=== PATIENT | male | born 1945 | race Caucasian/White ===

== ENCOUNTER → 2017-10-23 | Outpatient (CLI) | payer OTHER ==
[~2017-10-23] MED LIST: ALTACE2.5 MG PO; ASPIR 8181 M1 PO; ATORVASTATIN CA40 MG PO; CARVEDILOL12.5 MG PO; CLOPIDOGREL75 MG PO; FISH OIL 1,001000 M2 PO; FLUOXETINE HCL20 M1 PO; GLUCOSAMINE1000 MG PO; GLUCOTROL5 MG PO; JANUVIA100 MG PO; MELOXICAM15 MG PO; MULTI VITAMIN1 EACH PO; TRAZODONE 150150 M1 PO; ZETIA10 MG PO
== END ==
LOC: RAD 10:29
DX: C90.00 Multiple myeloma not having achieved remission (principal); M47.896 Other spondylosis, lumbar region; M47.892 Other spondylosis, cervical region

== ENCOUNTER 2021-02-18 14:20 | Inpatient (IN) | payer OTHER ==
[2021-02-18] VITALS (15 sets, daily range): BP systolic 89–131; BP diastolic 37–77
[~2021-02-18] VITALS: Ht 175.3 cm; Wt 65.8 kg
--- NOTE | ~2021-02-18 | EMS ---
[address] [address] EMS Patient Care Report Name: KIANA COOPER Room #: PRE MSydnee#: [id number] Admission: Attend Phys: Discharge: Date of : 45 Report #: [id number] THIS REPORT FOR: //name// Report Transmitted: 02/18/2021 14:28 EMS Care Summary [facility] MED-ACT Incident [id number] @ 02/18/2021 13:43 Incident Location [address] [place] [address] Patient KIANA COOPER Male, 75 Years 1945 Patient Address [address] [place] [address] Patient History Cardiac Arrythmia,Cardiac Arrest,Tracheostomy,Chronic Respiratory Failure,Respiratory Failure, Patient Allergies Iodine, Patient Medications Seroquel, Carvedilol, Oxycodone, Novolog, Bisacodyl, Metformin, Loratadine, Polyethlene Glycol, Trazodone, Ropinirole, Apixaban, Spironolactone, Aspirin, Amiodarone, Ativan, Prevacid, Chief Complaint Ventricular Tachycardia Disposition Transported No Lights/[place] Dispatch Reason Sick Person Transported To [address] [address] EMS Patient Care Report Name: KIANA COOPER Room #: PRE Antonietta#: [id number] Admission: Attend Phys: Discharge: Date of : 45 Report #: [id number] Narrative On arrival to the scene, the patient is found lying in his long-term care facility bed with fire responders, facility staff, and his family at his side. He is alert to verbal, oriented at his baseline according to his , tracks responders appropriately, and does not appear to be in acute distress. [facility] responders give this software test specialist a history of the present illness and interventions performed up to this point. At approximately 0530 this morning, the patient went into ventricular tachycardia with a pulse and has not gone into cardiac arrest today. He was recently admitted to [facility] from [facility] where he suffered two separate cardiac arrest events, a tracheostomy was placed, and other interventions were performed. He has a PICC in his right upper arm as well as a PIV in his right forearm that were not placed by EMS. Hanging on an IV pump is Cardizem at 15mL/hr that was titrated up from 5mL/hr, an emptied bag of Zosyn, and a 150mg bag of Amiodarone that is empty. Facility staff also reports giving the patient 0.5mg of Ativan PO at 1250. He has sustained the vtach since 0530 this morning with no alteration in rate or rhythm. The RN on scene reports thinking she saw atrial fibrillation with RVR. However, this software test specialist does not visualize an irregular rhythm on the monitor at this time. He has not become hypotensive at all since the arrhythmia began. He is placed on the defibrillation pads and moved to the stretcher via a draw-sheet assist where he is restrained according to local protocol. In the ambulance, the patient is placed on NiBP, SpO2, cardiac monitoring, defibrillation pads, and 12-lead ECG monitoring for continuous monitoring during transport. He appears to rest comfortably on the stretcher. The only medical complaint he has is a headache that he states has been persistent for the last 5 days. It is a generalized headache that is dull. He denies photophobia and phonophobia at this time. He denies chest pain, shortness of breath, and other symptoms associated with cardiac arrhythmias. During transport, the patient remains in a wide-complex tachycardia with no alteration to the rate. It remains at 149bpm with no supraventricular ectopy. His 12-lead ECG continues to show ventricular tachycardia. Report is attempted to be called to [facility] who advises this software test specialist that they have "no open beds, all hallway beds are full, and have no cardiac monitoring capabilities." Due to the patient's initially wanting the patient to be transported to [facility], this software test specialist diverts [facility] to [facility] and attempts to call the patient's . Biocom report is given to the receiving facility with no questions or further orders received. On arrival to the receiving facility, the patient's condition is unchanged. He remains alert to verbal stimuli and has no medical complaints aside from the headache he originally complained of. He remains in ventricular tachycardia with a pulse and does not complain of cardiac related symptoms. He is transported by EMS to ER 6 where he is moved to the stretcher via a draw-sheet assist. Report is given to the RN at MD at bedside who verbalize no comments or concerns regarding prehospital care. All questions are answered prior to leaving the receiving facility. [facility] [address] [place] [address] EMS Patient Care Report Name: KIANA COOPER Room #: PRE M.R.#: [id number] Admission: Attend Phys: Discharge: Date of : 45 Report #: [id number] Initial Vitals @14:08SpO2: 96,AR Suspected: false @14:15BP: 88/57,SpO2: 94, @14:00P: 149, @14:05P: 149,SpO2: 95,AR Suspected: false @14:07BP: 94/52,SpO2: 94, @14:11P: 149,BP: 101/57,SpO2: 95, @14:17P: 150,BP: 86/42,Pain: 2/10,GCS: 14,AR Suspected: false @13:59P: 149,R: 16,BP: 97/62,Pain: 2/10,GCS: 14,Temp: 99.1F,SpO2: 97,Revised Trauma: 12,AR Suspected: false Assessments @13:54MENTAL:Person Oriented,Time Oriented,Place Oriented,Event Oriented,SKIN:HEENT:Head/Face: No Abnormalities,Neck/Airway: No Abnormalities,LUNG SOUNDS:General: No Abnormalities,ABDOMEN:General: No Abnormalities,PELVIS//GI:No Abnormalities,EXTREMITIES:Capillary Refill: Left Upper: < 2 Sec,Left Arm: No Abnormalities,Right Arm: No Abnormalities,Left Leg: No Abnormalities,Right Leg: No Abnormalities,PULSE:Radial: 2+ Normal,NEURO:No Abnormalities, Impression Cardiac arrhythmia/dysrhythmia Procedures @14:14Surgical Mask on PatientResponse: Unchanged@13:52ALS AssessmentResponse: UnchangedSucceeded@PTANormal Saline (.9% NaCl) cc () Site: Antecubital-RightResponse: Unchanged@PTANormal Saline (.9% NaCl) cc () Site: Antecubital-RightResponse: Unchanged@14:0812-Lead ECGResponse: UnchangedSucceeded@14:0512-Lead ECGResponse: UnchangedSucceeded@PTAAmiodarone - 150 Milligrams (mg) - Intravenous (IV)Response: Improved Timeline DRAFTER DIRECTIONAL SURVEY,Normal Saline (.9% NaCl) cc Site: Antecubital-Right,Response: Unchanged DRAFTER DIRECTIONAL SURVEY,Normal Saline (.9% NaCl) cc Site: Antecubital-Right,Response: Unchanged DRAFTER DIRECTIONAL SURVEY,Amiodarone - 150 Milligrams (mg) - Intravenous (IV),Response: Improved 13:41,Call Received 13:41,Psap Call 13:43,Dispatched 13:43,En Route 13:48,On Scene 13:51,At Patient 13:52,ALS Assessment,Response: UnchangedSucceeded, 13:59,BP: 97/62 M,PULSE: 149,RR: 16 R,SPO2: 97 Ox,ETCO2: ,BG: ,PAIN: 2,GCS: 14, 14:00,BP: / M,PULSE: 149,RR: R,SPO2: Ox,ETCO2: ,BG: ,PAIN: ,GCS: , 14:04,Depart Scene 14:05,12-Lead ECG,Response: UnchangedSucceeded, [facility] [address] [place] [address] EMS Patient Care Report Name: KIANA COOPER Room #: [facility] M.R.#: [id number] Admission: Attend Phys: Discharge: Date of : 45 Report #: [id number] 14:05,BP: / M,PULSE: 149,RR: R,SPO2: 95 Ox,ETCO2: ,BG: ,PAIN: ,GCS: , 14:07,BP: 94/52 M,PULSE: ,RR: R,SPO2: 94 Ox,ETCO2: ,BG: ,PAIN: ,GCS: , 14:08,12-Lead ECG,Response: UnchangedSucceeded, 14:08,BP: / M,PULSE: ,RR: R,SPO2: 96 Ox,ETCO2: ,BG: ,PAIN: ,GCS: , 14:11,BP: 101/57 M,PULSE: 149,RR: R,SPO2: 95 Ox,ETCO2: ,BG: ,PAIN: ,GCS: , 14:14,Surgical Mask on Patient,Response: Unchanged 14:15,BP: 88/57 M,PULSE: ,RR: R,SPO2: 94 Ox,ETCO2: ,BG: ,PAIN: ,GCS: , 14:15,At Destination 14:17,BP: 86/42 M,PULSE: 150,RR: R,SPO2: Ox,ETCO2: ,BG: ,PAIN: 2,GCS: 14, 14:54,Call Closed Disclaimer v1.1 Copyright 2020 [employer] This EMS Care Summary contains data elements from the applicable legal record (which may be displayed differently). It is designed to provide pertinent information for the following purposes: continuity of care, clinical quality, and state data reporting. The complete legal record is available to ED staff and administrators of the receiving hospital in ES's Patient Tracker. All data is provided "as is."
[2021-02-18 14:44] LABS: BE(vivo) -2.2 mmol/L (-2 to +3); HCO3 20.2 mmol/L (22.0-26.0); PCO2 26.9 mmHg (35.0-45.0); pH 7.494 (7.360-7.450); sO2 93.6 % (92.0-98.0)
--- NOTE | 2021-02-18 15:03 | NUR ---
PAGED FOR PHARMACY TO SEND AMIODARONE STAT.
[2021-02-18 15:17] LABS: ABSOLUTE NEUTROPHILS 10.1 thou/uL (1.4-8.2); BASOPHILS 0.4 % (0.0-2.0); EOSINOPHILS 0.2 % (0.0-3.0); HEMOGLOBIN 8.7 gm/dL (14.0-18.0); LYMPHOCYTES 7.3 % (24.0-44.0); MCH 29.2 pg (26.0-34.0); MCHC 32.4 g/dL (28.0-37.0); MCV 90.4 fL (80.0-100.0); MONOCYTES 6.4 % (1.0-8.0); PLATELET COUNT 296 thou/uL (150-400); POLYS 85.7 % (36.0-66.0); RBC 2.99 mil/uL (4.50-6.00); RDW 15.3 % (10.5-14.5); WBC 11.8 thou/uL (4.0-11.0)
[2021-02-18 15:19] LABS: ANION GAP 8 mmol/L (7-16); BUN 20 mg/dL (7-18); CALCIUM 8.2 mg/dL (8.5-10.1); CHLORIDE 96 mmol/L (98-107); CO2 23 mmol/L (21-32); CREATININE 1.3 mg/dL (0.7-1.3); GLUCOSE 283 mg/dL (74-106); POTASSIUM 5.1 mmol/L (3.5-5.1); SODIUM 127 mmol/L (136-145)
[2021-02-18 15:41] LABS: ALBUMIN 2.1 g/dL (3.4-5.0); DIRECT BILIRUBIN 0.2 mg/dL (<0.1-0.2); MAGNESIUM 1.9 mg/dL (1.8-2.4); PHOSPHORUS 3.1 mg/dL (2.6-4.7); SGOT 162 U/L (15-37); SGPT 240 U/L (16-63); TOTAL BILIRUBIN 0.5 mg/dL (0.2-1.0); TOTAL PROTEIN 5.1 g/dL (6.4-8.2); TROPONIN-I <0.06 ng/mL (<0.06)
[2021-02-18 15:43] LABS: DIGOXIN 2.9 ng/mL (0.9-2.0)
--- NOTE | 2021-02-18 18:37 | NUR ---
CALLED [facility] AND REQUESTED CURRENT MEDICATION LIST TO BE FAXED, [facility] PHONE NUMBER [phone], SPOKE TO RADHA KANG.
[2021-02-18] MEDS ORDERED: ELIQUIS5 MG PO (18:54)
[2021-02-18] MEDS ORDERED: AMIODARONE HCL400 MG PER TUBE (18:54)
[2021-02-18] MEDS ORDERED: CARVEDILOL3.125 MG PER TUBE (18:55)
[2021-02-18] MEDS ORDERED: ELIQUIS5 MG PER TUBE (18:56)
[2021-02-18] MEDS ORDERED: ADULT ASPIRIN R81 MG PER TUBE (18:57)
[2021-02-18] MEDS ORDERED: NOVOLOG100 UNIT/M SUBQ (19:03)
[2021-02-18] MEDS ORDERED: LANSOPRAZOLE30 MG PER TUBE (19:05)
[2021-02-18] MEDS ORDERED: CLARITIN10 M3 PER TUBE (19:25)
[2021-02-18] MEDS ORDERED: METFORMIN HCL500 M3 PER TUBE (19:26)
[2021-02-18] MEDS ORDERED: MIRALAX17 GM PER TUBE (19:27)
[2021-02-18] MEDS ORDERED: REQUIP 1 MG TABL1 M1 PER TUBE ×2 (19:28→19:30)
[2021-02-18] MEDS ORDERED: SPIRONOLACTONE25 MG PER TUBE ×2 (19:31→19:39)
[2021-02-18] MEDS ORDERED: SPIRONOLACTONE25 M1 PER TUBE (19:32)
[2021-02-18] MEDS ORDERED: TRAZODONE HCL50 MG PER TUBE (19:40)
[2021-02-19] VITALS (32 sets, daily range): BP systolic 71–154; BP diastolic 34–106
--- NOTE | 2021-02-19 01:19 | NUR ---
02/18/212029: Pt admitted to ICU from ED in V-tach, rate 153-160. and son at bedside. Pt confused but oriented to person and somewhat to situation. 02/18/212099: Dr. Deutsch called. Pt and family have decided that they want to do cardioversion. Dr. Deutsch on his way in to talk with family. 02/18/212129: Dr. Deutsch here, discussed treatment options at length with pt and family
--- NOTE | 2021-02-19 01:51 | NUR ---
[employer] senior environmental technician here at midnight to reset AICD threshhold to [address] Deutsch. Pt has been in and out of V-Tach/V-fib since 0100 and received at least 9 shocks within a 45 minute period. Pt given morphine for discomfort of repeated shocks. Keeping O2 at 12 L high flow to insure adequate oxygenation during V-tach/V-fib. Pt awake and confused post shocks.
--- NOTE | 2021-02-19 02:58 | NUR ---
Pt continues to receive frequent shocks for V-tach/V-fib. Pt expressess feelings of impending and wanted to talk with his son, Sridhar. Sridhar called at [phone]. Phone taken in to pt so pt and son could talk together. Pt also given Morphine for generalized pain. Skin cool and clammy; attempted to sponge off pt but he requested nurse to stop. SBP remains >110, O2 sat 100%, monitor v-paced, sinus carol with 1st AVB and BBB, rates have been as low as 37 but usually 45-50.
--- NOTE | 2021-02-19 06:11 | NUR ---
Pt continues to have frequent runs of V-tach with rates 150-220. After AICD shocks pt drops back to sinus rhythm/sinus carol with rates 38-62, 1st degree AVB, BBB, v-paced beats and PVCs. Pt given morphine as ordered for generalized pain from frequent shocks. After some shocks pt appears to have seizure like activity, tonic convulsion with eyes rolling upward and altered breathing pattern. In between runs of VT/VF pt has been trying to sleep, remains confused but arouses easily to verbal stimuli. SBP has remained >100, MAP >60, O2 sat 100% on 12 L HFC. Pt has remained NPO since admission.
--- NOTE | 2021-02-19 09:25 | NUR ---
0700-ASSUMMED CARE OF PT.PT SLEEPING,WILL DO ASSESSMENT WHEN PT AWAKE.--VW 0750-[facility] CALLED W BED AVAILABLE.--VW 0805-REPORT GIVEN TO [facility] RN.--VW 0815-EMS CALLED FOR EMERGENT TRANSPORT.--VW 0825-CALLED [facility], ROOM #.--VW 0840-EKG DONE.--VW 0855-TO [facility], ROOM H 638. PT WENT FULLY MONITORED W ACLS CREW.TRACH REMAINED CAPPED.GLASSES W PT,NO OTHER BELONGINGS. COPIED CHART & TRANSPORT PAPERS GIVEN TO CREW.--VW
--- NOTE | 2021-02-19 12:28 | EKG ---
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 : 1945 Requested By: John Singh Order Number: [id number] MD: Melvin Deutsch Measurements Intervals [place] Rate: 149 P: 0 CA: 122 QRS: 121 QRSD: 224 T: -74 QT: 380 QTc: 599 Interpretive Statements Ventricular tachycardia Compared to ECG 12/29/2003 11:28:52 Sinus rhythm no longer present Electronically Signed On 02-19-2021 12:28:34 CDT by Melvin Deutsch [email or web address] <ELECTRONICALLY SIGNED> By: Melvin Deutsch MD, [facility] 02/19/21 1228 21 21 Melvin Deutsch MD, [facility] /EPI
--- NOTE | 2021-02-20 10:40 | CATHLAB ---
[facility] [address] [place] [address] INVASIVE PROCEDURE REPORT Name: KIANA COOPER Room #: 251-P [facility] IN M.R.#: [id number] Admission: 02/18/21 Attend Phys: Arik Lozano MD Discharge: 02/19/21 Date of : 45 Report #: [id number] THIS REPORT FOR: cc: Mono Peter MD, Alberto MD Lundgren,Melvin Hernandez MD [facility] ~ DOC #: [id number] Melvin Deutsch MD [facility] PROCEDURE: Cardioversion. INDICATIONS: Sustained VT. DESCRIPTION OF PROCEDURE: The potential benefits and risks were discussed with the patient and his family. Timeout was performed. A full written and informed consent was obtained. The patient was sedated with Versed and fentanyl. 50 biphasic synchronous joules were applied to the chest with conversion of VT to sinus bradycardia. He tolerated the procedure well. Plans are underway to reprogram his Medtronic ICD detection and treatment algorithm. Melvin Deutsch MD [facility] CHL/RISA/TAJ <ELECTRONICALLY SIGNED> By: Melvin Deutsch MD, [facility] 02/20/21 1040 0823 1452 Melvin Deutsch MD, FACC /nt
--- NOTE | 2021-02-20 11:00 | HC ---
[facility] [place] [address] CONSULTATION Name: KIANA COOPER Room #: 251-[facility] IN M.R.#: [id number] Admission: 02/18/21 Attend Phys: Arik Lozano MD Discharge: 02/19/21 Date of : 45 Report #: [id number] THIS REPORT FOR: cc: Mono Peter MD, Alberto MD Lundgren,Melvin Hernandez MD [facility] ~ DOC #: [id number] Melvin Deutsch MD [facility] DATE OF SERVICE: 02/18/2021 REASON FOR CONSULTATION: Wide complex tachycardia. HISTORY OF PRESENT ILLNESS: The patient is a 75-year-old gentleman with a complicated history including remote myocardial infarction, treated with thrombolytic therapy in 1991. This is followed by another heart attack in 1996, at which time he underwent 5-vessel bypass surgery by Dr. Erwin at [facility]. Two years ago an empiric ICD was placed given his ischemic cardiomyopathy and an ejection fraction around 35%. About a month ago, he had an out of hospital cardiac arrest, PEA, treated with CPR, hypothermia protocal, cardiac angiogram, formal EP evaluation at [facility]. He ended up with a tracheostomy and PEG tube and then transferred to [facility] on amiodarone 800mg/daily. He is currently breathing on room air, awake and alert. This morning was found to be in a wide complex rhythm at [facility], initially treated as afib w/RVR and aberrancy; in hindsight sustained VT. Later this afternoon he was transferred with this persistent tachycardia to the ED. His Medtronic ICD was interrogated, has received therapies following his last interrogation. His VT zone was programmed on with burst pacing at a rate of 167, although his VT rate is about 155. There was some discussion and the family elected to try medicine and not external cardioversion at the time of ED visit, although now that more family members are available and after further discussion, he wishes aggressive therapy. ALLERGIES: There are no known drug allergies. MEDICATIONS: Include amiodarone 400 mg twice daily, apixaban 5 mg twice daily, aspirin, carvedilol 3.125 mg twice daily, insulin, Prevacid, metformin 500 mg before breakfast, spironolactone 12.5 mg daily, trazodone 50 mg at night. [address] [address] CONSULTATION Name: KIANA COOPER Room #: 251-P [facility] IN M.R.#: [id number] Admission: 02/18/21 Attend Phys: Arik Lozano MD Discharge: 02/19/21 Date of : 45 Report #: [id number] PAST MEDICAL HISTORY: Medical records have been reviewed and include a history of coronary artery bypass grafting, hypertension, tobacco dependency, severe ischemic cardiomyopathy, chronic kidney disease, tracheostomy and PEG tube placement, possible paroxysmal atrial fibrillation (?). SOCIAL HISTORY: He is a smoker, history of alcohol use. , supportive family. FAMILY HISTORY: Unremarkable for premature coronary disease. REVIEW OF SYSTEMS: All systems negative except as that noted above. PHYSICAL EXAMINATION: GENERAL: Reveals a pleasant gentleman. He is in a sustained monomorphic ventricular tachycardia at 156 beats per minute. VITAL SIGNS: Blood pressure is 116/55, saturations are 100% on room air. HEENT: Neither xanthelasma, subcutaneous xanthomata, oral mucosa or digital cyanosis or kyphoscoliosis present. CHEST: Reveals few bibasilar crackles. CARDIAC: Tachycardic, regular rate and rhythm. NECK: Jugular venous pressure is elevated. ABDOMEN: Soft and nontender. EXTREMITIES: Without edema. Radial pulses are 2+. NEUROLOGIC: He is alert with a nonfocal exam. LABORATORY DATA: White count 19.1, hemoglobin 11, hematocrit 33. ProBNP is elevated. EKG wide complex tachycardia consistent with ventricular tachycardia. Chest x-ray demonstrates tracheostomy, patchy diffuse infiltrates. Sodium 127, potassium 5.1, creatinine 1.3. ProBNP is 10,000. Digoxin level is 2.9, hemoglobin 8.7, hematocrit 27, white count 11.8. ASSESSMENT: 1. Sustained monomorphic ventricular tachycardia. VT storm. 2. Acute on chronic systolic heart failure; severe ischemic cardiomyopathy. 3. Anemia. 4. Diabetes. 5. Dyslipidemia. 6. Remote coronary artery bypass grafting, recent favorable angiogram. 7. Remote Medtronic dual chamber ICD. 8. MGUS 9. Encephalopathy RECOMMENDATIONS: 1. Cardioversion. 2. Therapeutic options are challenging in this setting given at least a month [facility] [address] [place] [address] CONSULTATION Name: KIANA COOPER Room #: 251-P [facility] IN M.R.#: [id number] Admission: 02/18/21 Attend Phys: Arik Lozano MD Discharge: 02/19/21 Date of : 45 Report #: [id number] of high-dose amiodarone and now recurrent sustained VT. Changed to IV amiodarone. This appears at least for the moment to be hemodynamically stable. Consideration for VT ablation, previously mentioned to family as treatment option. 3. Reprogramming of defibrillator to deliver therapies for slower VT; consider additional antiarrhythmic therapy such as mexiletine. 4. High risk for clinical deterioration including . I have discussed in great length these issues with the patient and his son and . They wish to be transferred to a higher level of care hospital where EP services are available. Dr. Amato out of town this upcoming week. 2.5hr cc time. Discussion with nursing, multiple prolonged family discussions, coordinating care with [facility], discussions with weapons officer naval activity Melvin Deutsch MD [facility] CHL/PUN <ELECTRONICALLY SIGNED> By: Melvin Deutsch MD, [facility] 02/20/21 1100 2123 0156 Melvin Deutsch MD, [facility] /nt
--- NOTE | 2021-02-20 11:34 | EKG ---
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 : 1945 Requested By: Arik Lozano Order Number: [id number] MD: Melvin Deutsch Measurements Intervals [place] Rate: 69 P: -75 UT: 297 QRS: -83 QRSD: 205 T: 93 QT: 642 QTc: 688 Interpretive Statements Sinus or ectopic atrial rhythm Prolonged UT interval Nonspecific intraventricular conduction delay Leftward axis Compared to ECG 02/18/2021 14:22:25 Ventricular tachycardia is no longer present Electronically Signed On 02-20-2021 11:34:07 CDT by Melvin Deutsch [email or web address] <ELECTRONICALLY SIGNED> By: Melvin Deutsch MD, [facility] 02/20/21 1134 0838 0838 Melvin Deutsch MD, [facility] /EPI
== END 2021-02-19 08:55 | disposition short-term general hospital (02) | DRG 308 ==
LOC: ER 14:20 → EROBS 17:02 → ICU 20:22
PROVIDERS: Emergency Medicine; ADMIT Hospitalist; ATTEND Hospitalist
PROC: 5A2204Z Restoration of Cardiac Rhythm, Single (ICD-10-PCS; principal; 2021-02-19)
DX: I47.1 Supraventricular tachycardia (principal); J96.01 Acute respiratory failure with hypoxia; I50.23 Acute on chronic systolic (congestive) heart failure; I13.0 Hypertensive heart and chronic kidney disease with heart failure and stage 1 through stage 4 chronic kidney disease, or unspecified chronic kidney disease; E87.2 Acidosis; G93.40 Encephalopathy, unspecified; I46.9 Cardiac arrest, cause unspecified; I49.01 Ventricular fibrillation; R13.10 Dysphagia, unspecified; I25.10 Atherosclerotic heart disease of native coronary artery without angina pectoris; E78.00 Pure hypercholesterolemia, unspecified; N18.9 Chronic kidney disease, unspecified; E11.22 Type 2 diabetes mellitus with diabetic chronic kidney disease; D47.2 Monoclonal gammopathy; I25.5 Ischemic cardiomyopathy; D64.9 Anemia, unspecified; E78.5 Hyperlipidemia, unspecified; F17.200 Nicotine dependence, unspecified, uncomplicated; F41.9 Anxiety disorder, unspecified; Z66 Do not resuscitate; Z20.822 Contact with and (suspected) exposure to COVID-19; Z86.73 Personal history of transient ischemic attack (TIA), and cerebral infarction without residual deficits; Z93.0 Tracheostomy status; I25.2 Old myocardial infarction; Z86.711 Personal history of pulmonary embolism; Z95.1 Presence of aortocoronary bypass graft; Z79.82 Long term (current) use of aspirin; Z79.84 Long term (current) use of oral hypoglycemic drugs; Z79.899 Other long term (current) drug therapy
CPT/HCPCS: 10203